=== PATIENT | female | born 1970 | race Caucasian/White ===

== ENCOUNTER 2018-12-31 14:13 | Outpatient (CLI) | payer OTHER ==
--- NOTE | 2018-12-31 16:41 | ULT ---
LEFT LOWER EXTREMITY VENOUS DUPLEX EXAM: Date: 12/31/18 HISTORY: Left lower extremity edema and an elevated D-Dimer. FINDINGS/IMPRESSION: Real-time color Doppler evaluation of the left lower extremity was performed from groin to calf. This includes evaluation of the common femoral, superficial and profunda femoral, saphenous, popliteal, a nd posterior tibial veins This shows patent deep venous system. There is normal compressibility and a ugmentation. POS: JACKELYN
== END 2018-12-31 14:14 | disposition home or self-care (01) ==
LOC: SCSULT 14:13
PROVIDERS: ATTEND Family Medicine
DX: R60.0 Localized edema (principal)
CPT/HCPCS: 36415; 80053; 80061; 83036; 83525; 85025; 85379

== ENCOUNTER 2023-08-27 08:13 | Outpatient (CLI) | payer BC | END 2023-08-27 08:14 | disposition home or self-care (01) | LOC: BICMAMMO 08:13 | PROVIDERS: ATTEND Family Medicine | DX: Z12.31 Encounter for screening mammogram for malignant neoplasm of breast (principal); N64.89 Other specified disorders of breast; Z98.82 Breast implant status | CPT/HCPCS: 77063; 77067 ==

== ENCOUNTER 2023-09-03 08:37 | Outpatient (CLI) | payer BC | END 2023-09-03 08:38 | disposition home or self-care (01) | LOC: BICMAMMO 08:37 | PROVIDERS: ATTEND Family Medicine | DX: N63.25 Unspecified lump in the left breast, overlapping quadrants (principal) | CPT/HCPCS: G0279 ==